=== PATIENT | male | born 1970 | race Caucasian/White ===

== ENCOUNTER 2023-04-22 14:45 | Emergency (ER) | payer OTHER, SELFPAY ==
[2023-04-22 14:56] VITALS: BP 146/91
--- NOTE | 2023-04-22 16:09 | ED.MUSCINJ ---
HPI-Injury
General
Chief Complaint: Musculo-Skeletal Complaint
Source: patient
Exam Limitations: none
Time Seen by Provider: 04/22/23 15:43
Travel History
Have you had any contact with someone who has COVID-19?: No
Do you have any symptoms of coronavirus? Fever > 100 degrees, chills, cough, shortness of breath, sore throat, loss of taste or smell, muscle aches, or headache?: No
History of Present Illness-Injury
Initial Injury comments:
52-year-old [id number] male presents complaining of left shoulder pain. He states he fell 2 [address] in [address] driveway and landed on his left shoulder. He sought treatment at an urgent care yesterday. X-rays were taken and he was told he
had a scapular fracture. He was advised to follow-up with orthopedics. Orthopedic group he was referred to does not take his insurance so he presented here for further evaluation. He denies chest pain. Denies shortness of breath. The pain is
not pleuritic. It is worse when he moves his shoulder. No numbness to the arms. No other complaints at this time
Past History
Past History
ED Past Medical History: Other (Chronic back pain)
ED Past Surgical History: None
Social History
Tobacco: Smoker
Alcohol: Daily
Employment: Employed
Family History
Family History: Hypertension
Phy Exam
Physical Exam
Physical Exam:
General: Well-appearing male no acute respiratory distress
HEENT: Normocephalic atraumatic
Musculoskeletal exam: Left scapula is tender to palpation. The ribs surrounding it are nontender without swelling ecchymosis or step-off. Shoulder itself is nontender. Decreased range of motion of shoulder secondary to pain
Lungs are clear breath sounds heard throughout
Heart is regular
Vascular: 2+ radial pulse left wrist
MDM/Problems Addressed
Differential Diagnosis Includes:
I have personally visualized x-rays taken of the urgent care from yesterday. This shows a scapular fracture. This injury is 2 weeks old. More specific attention was made on the ribs and lung. There is no acute chest injury otherwise. Given the
chronicity of the injury no need for urgent imaging such as CT scan. Recommended close follow-up with orthopedics. Continue use of sling. Stable for discharge.
*Critical Care Note
Total Time (30-74mins, 75-104mins- exclusive of procedures): Not Applicable
ED Attending Note
-
Portions of this chart may have been created with voice recognition software.� Occasional wrong word or��sound alike� substitutions may have occurred due to the inherent limitations of voice recognition software.
Discharge Plan
Departure
Patient Disposition: Home (Routine Discharge)
Date of Disposition: 04/22/23
Time of Disposition: 16:11
Patient with high blood pressure during this ER visit?: No
Discharge Problem:
Fracture of scapular body
Instructions: Muscle and Bone Pain (DC)
Prescriptions:
No Action
oxycodone-acetaminophen 5 MG/325 MG tablet
2 tab PO Q6HPRN PRN (Reason: pain)
pantoprazole 40 MG tablet,delayed release (DR/EC)
40 mg PO DAILY
Referrals:
Deshawn Perdomo MD [Family Provider] -
Kelly Olmos I., DO [Active] -
Activity Restrictions/Additional Instructions:
She continue with the sling. Continue with your medicine. Follow-up with orthopedics for further evaluation
Interventions
Interventions:
*Risk Screen - Suicide Last Done: 04/22/23 16:00
*General Assessment Last Done: 04/22/23 16:00
*Neglect/Abuse Screening Last Done: 04/22/23 16:00
*ED COVID-19 Vaccine History Last Done: 04/22/23 16:00
ED-Musculoskeletal Assessment Last Done: 04/22/23 16:00
== END 2023-04-22 16:43 | disposition home or self-care (01) ==
LOC: EMR 14:45
PROVIDERS: EMERGENCY PHYSICIAN Emergency Medicine; FAMILY PHYSICIAN Internal Medicine
DX: S42.102A Fracture of unspecified part of scapula, left shoulder, initial encounter for closed fracture (principal); W19.XXXA Unspecified fall, initial encounter; F17.200 Nicotine dependence, unspecified, uncomplicated
CPT/HCPCS: 99281